=== PATIENT | female | born 1995 | race Caucasian/White ===

== ENCOUNTER 2020-07-21 08:24 | Emergency (ER) | payer OTHER ==
[~2020-07-21] VITALS: Ht 170.2 cm; Wt 63.5 kg
[2020-07-21 08:28] VITALS: BP 151/110
[2020-07-21] MEDS ORDERED: ADDERALL 20 MG20 MG PO (08:32)
[2020-07-21] MEDS ORDERED: JUNEL FE 1.5-31 EACH PO (08:33)
== END 2020-07-21 09:05 | disposition home or self-care (01) ==
LOC: ER 08:24
DX: U07.1 COVID-19 (principal); J06.9 Acute upper respiratory infection, unspecified; F98.8 Other specified behavioral and emotional disorders with onset usually occurring in childhood and adolescence; Z79.899 Other long term (current) drug therapy; Z88.8 Allergy status to other drugs, medicaments and biological substances